=== PATIENT | male | born 1955 | race African-American/Black ===

== ENCOUNTER → 2016-05-08 | Outpatient (CLI) | payer OTHER ==
[~2016-05-08] MED LIST: IPRASOL INH; LEFL20TA11 PO; METO-309 PO; NEBULIZER1 MI1; OXYGENTANK NAS.CANULA; PLAQ200T PO; [UNRECOGNIZED DRUG - CODE] PO
--- NOTE | 2016-05-10 09:20 | RSPPFT ---
DATE OF PROCEDURE: 05/08/16 COMMENTS: VOLUMES DYNAMIC: FVC and FEV1 moderately reduced. STATIC: VTG, TLC moderately reduced, RV normal. FLOWS: FEV1% normal; FEF 25-75 very mildly reduced. DIFFUSION: Moderately reduced. FLOW VOLUME LOOP: Restrictive configuration. IMPRESSION: Mild to moderate restrictive ventilatory defect with mild terminal airflow obstruction and a moderate reduction in diffusion. No significant airways obstruction and no improvement post-bronchodilator noted.
== END ==
LOC: HRSP 12:20
PROVIDERS: ATTEND Internal Medicine
DX: J44.9 Chronic obstructive pulmonary disease, unspecified (principal)
CPT/HCPCS: 94060; 94620; 94726; 94729; 95012